=== PATIENT | male | born 1980 | race Caucasian/White ===

== ENCOUNTER 2018-10-09 17:42 | Emergency (ER) | payer BC, OTHER ==
[2018-10-09 19:05] VITALS: BP 127/88
[2018-10-09] MEDS ORDERED: Tetan/Diph/Pertus SYR(Tdap)* 0.5 ML SYR(BOOSTRIX) use SYR IM ONE (19:13)
[2018-10-09] MEDS ORDERED: Amoxicillin/Clavulanate TAB* 875 MG PO ONE (20:07)
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
== END 2018-10-09 20:36 | disposition home or self-care (01) ==
LOC: UCCORT 17:42
DX: S41.151A Open bite of right upper arm, initial encounter (principal); Y04.1XXA Assault by human bite, initial encounter; Z87.891 Personal history of nicotine dependence; Z23 Encounter for immunization
CPT/HCPCS: 90715; 99202; G0463

== ENCOUNTER 2018-11-26 16:04 | Emergency (ER) | payer OTHER | END 2018-11-26 16:17 | disposition left against medical advice (07) | LOC: UCCORT 16:04 | DX: H57.89 Other specified disorders of eye and adnexa (principal); Z53.21 Procedure and treatment not carried out due to patient leaving prior to being seen by health care provider ==